=== PATIENT | female | born 1990 | race Caucasian/White ===

== ENCOUNTER 2025-10-08 15:46 | Emergency (ER) | payer BC ==
[~2025-10-08] VITALS: Ht 162.6 cm; Wt 76.2 kg
[2025-10-08 16:07] VITALS: BP 112/65; TEMP 97.9
[2025-10-08] MEDS ORDERED: ACET325C7 PO (16:17)
[2025-10-08] MEDS ORDERED: AMOX-430 PO (16:17)
[2025-10-08 16:21] VITALS: O2SAT 98
== END 2025-10-08 16:24 | disposition home or self-care (01) ==
LOC: ER 15:55
DX: K04.7 Periapical abscess without sinus (principal); J45.909 Unspecified asthma, uncomplicated; Z86.19 Personal history of other infectious and parasitic diseases; Z60.2 Problems related to living alone